=== PATIENT | female | born 1995 | race American Indian/Alaskan Native ===

== ENCOUNTER 2018-04-15 14:04 | Emergency (ER) | payer BC ==
[~2018-04-15] VITALS: Ht 175.3 cm; Wt 77.1 kg
[2018-04-15 14:08] VITALS: Ht 175.3 cm; Wt 77.1 kg
[2018-04-15 15:22] VITALS: BP 130/84
== END 2018-04-15 15:22 | disposition home or self-care (01) ==
LOC: ED 14:04
DX: H66.93 Otitis media, unspecified, bilateral (principal)
CPT/HCPCS: J1885; J2001

== ENCOUNTER 2018-04-16 08:49 | Emergency (ER) | payer BC ==
[~2018-04-16] VITALS: Ht 177.8 cm; Wt 75.7 kg
[2018-04-16 08:56] VITALS: Ht 177.8 cm; Wt 75.7 kg
[2018-04-16 10:22] VITALS: BP 129/98
== END 2018-04-16 10:22 | disposition home or self-care (01) ==
LOC: ED 08:49
DX: H92.01 Otalgia, right ear (principal)

== ENCOUNTER 2018-07-10 20:14 | Emergency (ER) | payer BC ==
[~2018-07-10] VITALS: Ht 175.3 cm; Wt 79.4 kg
[2018-07-10 20:31] VITALS: BP 158/99; Ht 175.3 cm; Wt 79.4 kg
== END 2018-07-10 22:00 | disposition left against medical advice (07) ==
LOC: ED 20:14
DX: K59.00 Constipation, unspecified (principal); N39.0 Urinary tract infection, site not specified
CPT/HCPCS: J1885

== ENCOUNTER 2018-07-15 04:33 | Emergency (ER) | payer BC ==
[~2018-07-15] VITALS: Ht 175.3 cm; Wt 79.4 kg
[2018-07-15 04:39] VITALS: Ht 175.3 cm; Wt 79.4 kg
[2018-07-15 06:07] VITALS: BP 125/100
[2018-07-15 06:59] LABS: UA SPECIFIC GRAVITY 1.025 (1.005-1.035); microscopic required? YES; urine erythrocyte 3+ (NEGATIVE)
== END 2018-07-15 06:07 | disposition home or self-care (01) ==
LOC: ED 04:33
PROVIDERS: Emergency Medicine
DX: R10.30 Lower abdominal pain, unspecified (principal)
CPT/HCPCS: 87491; 87591; J1885; Q0092